=== PATIENT | male | born 1950 | race Caucasian/White ===

== ENCOUNTER 2019-07-19 22:22 | Emergency (ER) | payer OTHER ==
[~2019-07-19] VITALS: Ht 180.3 cm; Wt 68.0 kg
[2019-07-19 22:46] LABS: BASOPHILS 0.4 % (0.0-2.0); EOSINOPHILS 0.7 % (0.0-3.0); HEMATOCRIT 42.6 % (42.0-52.0); HEMOGLOBIN 14.4 gm/dL (14.0-18.0); LYMPHOCYTES 27.2 % (24.0-44.0); MCH 29.7 pg (26.0-34.0); MCHC 33.7 g/dL (28.0-37.0); MCV 88.2 fL (80.0-100.0); MONOCYTES 6.4 % (1.0-8.0); PLATELET COUNT 186 thou/uL (150-400); POLYS 65.3 % (36.0-66.0); RBC 4.84 mil/uL (4.50-6.00); RDW 16.3 % (10.5-14.5); WBC 9.2 thou/uL (4.0-11.0)
[2019-07-19] MEDS ORDERED: LISINOPRIL2.5 MG PO (22:47)
[2019-07-19] MEDS ORDERED: CLONIDINE HCL0.2 M2 PO (22:48)
[2019-07-19] MEDS ORDERED: SPIRONOLACTONE25 MG PO (22:48)
[2019-07-19] MEDS ORDERED: FOLIC ACID1 MG PO (22:49)
[2019-07-19] MEDS ORDERED: LORATIDINE 10 M10 M1 PO (22:50)
[2019-07-19] MEDS ORDERED: GUAIFENESIN PO (22:50)
[2019-07-19] MEDS ORDERED: PROTONIX40 M2 PO (22:50)
[2019-07-19] MEDS ORDERED: ESCITALOPRAM PO (22:51)
[2019-07-19] MEDS ORDERED: SIMVASTATIN80 MG PO (22:52)
[2019-07-19] MEDS ORDERED: HYDROXYZINE HCL25 M2 PO (22:53)
[2019-07-19 22:54] LABS: ANION GAP 12 mmol/L (7-16); BUN 16 mg/dL (7-18); CALCIUM 9.2 mg/dL (8.5-10.1); CHLORIDE 104 mmol/L (98-107); CO2 28 mmol/L (21-32); CREATININE 1.2 mg/dL (0.7-1.3); GLUCOSE 110 mg/dL (74-106); POTASSIUM 3.7 mmol/L (3.5-5.1); SODIUM 144 mmol/L (136-145)
[2019-07-19 23:00] LABS: TROPONIN-I <0.06 ng/mL (<0.06)
[2019-07-20] MEDS ORDERED: AMOXICILLIN500 M1 PO (00:49)
[2019-07-20 00:51] VITALS: BP 162/78
--- NOTE | 2019-07-20 08:09 | EKG ---
[facility] [place] [address] [place] [address] ELECTROCARDIOGRAM REPORT Name: DAVID BECKHAM Room #: DEP M..#: [id number] Admission: 07/19/19 Attend Phys: Discharge: 07/20/19 Date of : 48 Report #: [id number] THIS REPORT FOR: cc: FLORENCE HERRMANN MD, BEVERLEY B. MD Lundgren, Craig H. MD [facility] ~ THIS REPORT FOR: //name// [facility] ED Test Date: 2019-07-19 Test Time: 22:26:27 Pat Name: DAVID BECKHAM Department: Room: Gender: Supervisor Winding Department[facility] 1950 Requested By: Pedro Luis Barbosa Order Number: [id number] MD: Alfredo Reece Measurements Intervals [place] Rate: 103 P: 52 SC: 181 QRS: -58 QRSD: 110 T: 84 QT: 347 QTc: 454 Interpretive Statements Sinus tachycardia LAD, consider left anterior fascicular block Anterior infarct, old Compared to ECG 11/02/2008 14:09:59 Early R wave progression is no longer present Electronically Signed On 07-20-2019 8:07:57 CDT by Alfredo Reece [email or web address] <ELECTRONICALLY SIGNED> By: Alfredo Reece MD, [facility] 07/20/1907 25 25 Alfredo Reece MD, [facility] /EPI
== END 2019-07-20 01:37 | disposition home or self-care (01) ==
LOC: ER 22:22
PROVIDERS: Emergency Medicine
DX: J18.9 Pneumonia, unspecified organism (principal); K21.9 Gastro-esophageal reflux disease without esophagitis; I10 Essential (primary) hypertension; J44.9 Chronic obstructive pulmonary disease, unspecified; F17.210 Nicotine dependence, cigarettes, uncomplicated; Z03.818 Encounter for observation for suspected exposure to other biological agents ruled out; Z79.899 Other long term (current) drug therapy; Z88.6 Allergy status to analgesic agent; Z88.8 Allergy status to other drugs, medicaments and biological substances; Z98.890 Other specified postprocedural states; Z90.49 Acquired absence of other specified parts of digestive tract

== ENCOUNTER 2019-08-26 19:05 | Inpatient (IN) | payer OTHER ==
[~2019-08-26] VITALS: Ht 170.2 cm; Wt 72.6 kg
[~2019-08-26 19:05] MED LIST: AMOXICILLIN500 M1 PO; CLONIDINE HCL0.2 M2 PO; ESCITALOPRAM PO; FOLIC ACID1 MG PO; GUAIFENESIN PO; HYDROXYZINE HCL25 M2 PO; LISINOPRIL2.5 MG PO; LORATIDINE 10 M10 M1 PO; PROTONIX40 M2 PO; SIMVASTATIN80 MG PO; SPIRONOLACTONE25 MG PO
[2019-08-26 19:07] VITALS: BP 101/52
[2019-08-26 20:04] LABS: ABSOLUTE NEUTROPHILS 5.6 thou/uL (1.4-8.2); EOSINOPHILS 0.7 % (0.0-3.0); HEMOGLOBIN 10.6 gm/dL (14.0-18.0); LYMPHOCYTES 30.7 % (24.0-44.0); MCH 30.9 pg (26.0-34.0); MCHC 34.2 g/dL (28.0-37.0); MCV 90.4 fL (80.0-100.0); PLATELET COUNT 158 thou/uL (150-400); POLYS 57.6 % (36.0-66.0); RBC 3.43 mil/uL (4.50-6.00); RDW 18.8 % (10.5-14.5); WBC 9.7 thou/uL (4.0-11.0)
[2019-08-26 20:11] LABS: ANION GAP 11 mmol/L (7-16); BUN 23 mg/dL (7-18); CALCIUM 8.9 mg/dL (8.5-10.1); CHLORIDE 100 mmol/L (98-107); CO2 27 mmol/L (21-32); CREATININE 1.6 mg/dL (0.7-1.3); GLUCOSE 92 mg/dL (74-106); POTASSIUM 3.3 mmol/L (3.5-5.1); SODIUM 138 mmol/L (136-145)
[2019-08-26 20:21] LABS: SGOT 22 U/L (15-37); SGPT 29 U/L (30-65); TOTAL BILIRUBIN 0.5 mg/dL (0.2-1.0); TOTAL PROTEIN 5.6 g/dL (6.4-8.2); TROPONIN-I <0.06 ng/mL (<0.06)
[2019-08-26 20:45] LABS: URINE BILIRUBIN 1+ (Negative); URINE BLOOD NEGATIVE (Negative); URINE CLARITY CLEAR; URINE COLOR YELLOW; URINE GLUCOSE-RANDOM* NEGATIVE (Negative); URINE KETONES NEGATIVE (Negative); URINE LEUKOCYTES-REFLEX TRACE (Negative); URINE NITRITE-REFLEX NEGATIVE (Negative); URINE PROTEIN (DIPSTICK) NEGATIVE (Negative); URINE UROBILINOGEN 0.2 E.U./dl (0.2-1.0)
[2019-08-26 20:47] LABS: ICTOTEST (BILI CONFIRMATORY) Negative (Negative)
[2019-08-26 22:29] LABS: HEMATOCRIT 28.2 % (42.0-52.0); HEMOGLOBIN 9.5 gm/dL (14.0-18.0); MCH 30.8 pg (26.0-34.0); MCHC 33.7 g/dL (28.0-37.0); MCV 91.1 fL (80.0-100.0); RBC 3.1 mil/uL (4.50-6.00); RDW 18.5 % (10.5-14.5); WBC 8.3 thou/uL (4.0-11.0)
[2019-08-26 23:18] LABS: PROTIME 10.7 Seconds (9.3-11.4)
--- NOTE | 2019-08-26 23:57 | NUR ---
PATIENTS DAUGHTER [phone] NICHOLE BUENROSTRO. PLEASE CONTACT WELL.
[2019-08-27] VITALS (8 sets, daily range): BP systolic 94–134; BP diastolic 51–76
--- NOTE | 2019-08-27 01:46 | NUR ---
ADM" PT ARRIVED AROUND 0120. ALERT AND ORIENTED. C/O HEADACHE , S/P FALL AND HEMATOMA. PT DRINKS VODKA DAILY. TREMORS NOTICED , NO ANY OTHER WITHDRAWAL SIGNS NOTICED. CONSUMER INSIGHTS INTERN NOTIFIED. LE BRUISES AND SCARRING. REPORTS LOOSING WEIGHT AND POOR APPETITE FOR SEVERAL WEEKS NOW. SR ON THE MONITOR. NO CHEST PAIN, NO N/V/D. NO EXTERNAL SIGN OF ACTIVE BLEED DESPITE DROP IN HGB. WILL CONTINUE TO MONITOR VS AND POC.
[2019-08-27 02:41] LABS: PHOSPHORUS 3.3 mg/dL (2.5-4.9)
[2019-08-27 04:06] LABS: MAGNESIUM 0.6 mg/dL (1.8-2.4)
[2019-08-27 05:28] LABS: HEMATOCRIT 28.7 % (42.0-52.0); HEMOGLOBIN 9.7 gm/dL (14.0-18.0); MCH 30.6 pg (26.0-34.0); MCHC 33.9 g/dL (28.0-37.0); RBC 3.18 mil/uL (4.50-6.00); RDW 18.7 % (10.5-14.5); WBC 6.1 thou/uL (4.0-11.0)
[2019-08-27 05:47] LABS: CALCIUM 8.1 mg/dL (8.5-10.1); CREATININE 1.3 mg/dL (0.7-1.3); POTASSIUM 3.4 mmol/L (3.5-5.1)
[2019-08-27 07:05] LABS: % SATURATION 15 % (20-39); IRON 31 ug/dL (65-175); TIBC 208 ug/dL (250-450)
[2019-08-27 07:34] LABS: FOLIC ACID 64.1 ng/mL (8.6-58.9)
[2019-08-27 10:55] LABS: MAGNESIUM 2.1 mg/dL (1.8-2.4); POTASSIUM 4.1 mmol/L (3.5-5.1)
--- NOTE | 2019-08-27 13:13 | NUR ---
PT CARE ASSUMED AT 0700, PT ALERT AND ORIENTED X4, DENIES CHEST PAIN. PT STATES HAVING SOME NAUSEA AND HEADACHE. ON ROOM AIR, NO SIGNS OF DISTRESS NOTED. CALL LIGHT AND TABLE WITHIN REACH. BED AT LOWEST LEVEL WITH ALA RM ON 1000 PT DAUGHTER CAME IN WITH PT ADVANCE DIRECTIVE, A COPY MADE AND PUT IN PT CHART.
--- NOTE | 2019-08-27 15:16 | NUR ---
Chart reviewed and case discussed with the care team. Ranch Cook attempted to talk with pt however he is nauseated and sleeping this afternoon. Pt's dtr [place] here this morning and brought in a copy of the pt's dpoa for hc/adv directive for the chart. She notes that he lives in a ground level apt with his brother. He recently went to [facility] d/t a fall and uses a rwalker for gait in the home. He has been drinking heavily and his dtr notes this has been increasing over the past 8 years since he lost his . He utlizes the local [place] clinic for his pcp (dr. kyle) and gets his meds there. Fawn lives locally and her sister Allison who is an alternate dpoa lives out of state. Both are available via cell phone. Fawn indicates the pt normally goes to the [place] hospital;however he does not want to transfer there now as he is feeling bad and already detoxing. She reports that he had made plans to go to the [facility] at the [place] for detox and to get help for his depression. She is concerned that he may need to make other living arrangements as the home situation with his brother is unhealthy. She requested [facility] resources and is also concerned that he is very weak. SNF/rehab discussed, and both SNF and RETIREMENT listings were emailed to her. A senior blue book was left in the room for them as well. PT/OT evals are in progress. GI is consulting due to possible bleed. IRENA 5. Will follow along for possible SNF referral at [place].
--- NOTE | 2019-08-28 05:47 | NUR ---
ASSUMED PT CARE AT 1900, PT IS AWAKE, ALERT AND ORIENTED, MAKES NEEDS KNOWN, SR ON THE MONITOR, C/O PAIN, MEDICATED PRN, C/O NAUSEA, MEDICATED PRN WITH RELIEF, REMAINED NPO AFTER MIDNIGHT FOR EGD IN THE AM, REMAINED IN BED THROUGH THE SHIFT, WILL CONTINUE TO MONITOR
[2019-08-28 05:54] VITALS: BP 134/56
[2019-08-28 05:56] LABS: HEMATOCRIT 28.2 % (42.0-52.0); HEMOGLOBIN 9.6 gm/dL (14.0-18.0); MCH 30.7 pg (26.0-34.0); MCHC 33.9 g/dL (28.0-37.0); MCV 90.6 fL (80.0-100.0); RBC 3.11 mil/uL (4.50-6.00); RDW 18.9 % (10.5-14.5); WBC 6.7 thou/uL (4.0-11.0)
[2019-08-28 06:32] LABS: ALBUMIN 2.5 g/dL (3.4-5.0); CALCIUM 7.9 mg/dL (8.5-10.1); CREATININE 0.9 mg/dL (0.7-1.3); MAGNESIUM 1.5 mg/dL (1.8-2.4); POTASSIUM 3.7 mmol/L (3.5-5.1); TOTAL BILIRUBIN 0.6 mg/dL (0.2-1.0)
[2019-08-28 08:00] VITALS: BP 156/85
--- NOTE | 2019-08-28 11:46 | EKG ---
[facility] [place] [address] ELECTROCARDIOGRAM REPORT Name: DAVID BECKHAM Room #: 216-P ADM IN M.R.#: [id number] Admission: 08/27/19 Attend Phys: Nazanin Canela MD Discharge: Date of : 48 Report #: [id number] THIS REPORT FOR: cc: FITO - No family physician/PCP FITO - No family physician/PCP Modesto Vazquez MD ~ THIS REPORT FOR: //name// [facility] ED Test Date: 2019-08-26 Test Time: 19:50:34 Pat Name: DAVID BECKHAM Department: Room: [facility] Gender: M Cognos Lead: MARY : 1950 Requested By: Calvin Caro Order Number: [id number] MD: Modesto Vazquez Measurements Intervals [place] Rate: 88 P: -42 [place]: 164 QRS: -56 QRSD: 101 T: 83 QT: 371 QTc: 449 Interpretive Statements Sinus rhythm LAD, consider left anterior fascicular block Abnormal R-wave progression, early transition Compared to ECG 07/19/2019 22:26:27 Electronically Signed On 08-28-2019 11:45:51 CDT by Modesto Vazquez [email or web address] <ELECTRONICALLY SIGNED> By: Modesto Vazquez MD 08/28/19 1145 [birth year] Modesto Vazquez MD /EPI
[2019-08-28] MEDS ORDERED: PRENATAL PO (12:58)
[2019-08-28] MEDS ORDERED: VITAMIN B-1100 M2 PO (12:58)
--- NOTE | 2019-08-28 13:10 | NUR ---
RECEIVED PT'S CARE AROUND 0730; PT. ON BED; ALERT; DURING AM ASSESSMENT C/O HEADACHE; IV LORAZEPAM GIVEN; HOLD PO AM MEDICATION DUE TO NPO; EGD PLAN; GONE FOR THE PROCEDURE AFTER 0800; BACK FROM PROCEDURE AFTER 0900; PT. AOX4; ABLE TO EAT DURING LUNCH; HAD SOME BM's; CIWA PERFORMED; CHECK CHART; DURING THE AFTERNOON PT'S DAUGHTER AT THE BED SIDE; REQUESTED TO SPEAK TO PHYSICIAN DUE TO POC; PHYSICIAN PAGED & ABLE TO TALK WITH DAUGHTER; PER PHYSICIAN PRINT PT'S CHART SO IT CAN BE GIVEN TO ER PHYSICIAN AT THE [place] [facility]; [employer] TE[employer]ER [facility]; ASSESSMENT CHARGED; FOLLOWING POC; D/C ON PLACED; PT & DAUGHTER EDUCATED ABOUT IT; [facility]; WORKING ON D/C PAPER WORK;
[2019-08-28 13:26] VITALS: BP 156/85
--- NOTE | 2019-09-02 18:06 | PATH ---
[facility] [place] [address] PATHOLOGY RPT PROCEDURE Name: DAVID BECKHAM Room #: 216-P DIS IN M.R.#: [id number] Admission: 08/27/19 Date of : 48 Discharge: 08/28/19 Report #: [id number] Path Case #: [id number] [facility] Accession Number: [id number] . 01 Material submitted: . PART A: duodenum - BIOPSY OF DUODENUM TO RULE OUT SPRUE PART B: gastrointestinal site - BIOPSY OF GASTRITIS PART C: esophagus - BIOPSY OF DISTAL ESOPHAGUS . Modifiers: distal . 01 Clinician provided ICD-10: K92.2 N17.9 . 01 Clinical history: . anemia, hx of rebollar's . 02 Diagnosis: A. Duodenum, duodenum rule out sprue, endoscopic biopsy: - No diagnostic abnormalities present. - Negative for villous blunting or increase in intraepithelial lymphocytes. . B. Gastric mucosa, gastritis, endoscopic biopsy: - Mild reactive gastropathy. - Negative for intestinal metaplasia or atrophy. - Negative for Helicobacter pylori (properly-controlled immunohistochemical stain performed). . C. Gastroesophageal mucosa, distal esophagus to rule out Rebollar's, endoscopic biopsy: - SPECIALIZED COLUMNAR EPITHELIUM (GASTRIC CARDIA-TYPE MUCOSA) WITH INTESTINAL METAPLASIA, CONSISTENT WITH REBOLLAR'S METAPLASIA; SHOWING FOCAL AREA INDEFINITE FOR DYSPLASIA, SEE COMMENT. - Squamous mucosa with mild esophagitis. . (IUV:mml; 09/01/2019) [facility] 09/02/2019 1720 Local . 02 Comment: A tiny focus of stratified metaplastic epithelium is present at the surface; however is lost on additional recuts examined. This focus is likely reactive. Close clinical correlation is suggested. . H and E slide of part C was co-reviewed by Dr. Sangeeta Sun, who concurs with my interpretation. . (IUV:mml; 09/01/2019) [facility] [address] [place] [address] PATHOLOGY RPT PROCEDURE Name: DAVID BECKHAM Room #: 216-P DIS IN M.R.#: [id number] Admission: 08/27/19 Date of : 48 Discharge: 08/28/19 Report #: [id number] Path Case #: [id number] . 02 Electronically signed: . Mary Ann Bailey MD, Pathologist NPI- [id number] . 01 Gross description: . A. The specimen is received in formalin labeled "David Beckham BX of duodenum to rule out sprue" and consists of multiple fragments of mahan tissue measuring 1.0 x 0.3 x 0.2 cm in aggregate which are entirely submitted in A1. . B. The specimen is received in formalin labeled "David Beckham BX of gastritis" and consists of multiple fragments of mahan tissue measuring 1.2 x 0.2 x 0.2 cm in aggregate which are entirely submitted in B1. . C. The specimen is received in formalin labeled "David Beckham BX of the distal esophagus to rule out Rebollar's" and consists of a fragment of mahan tissue measuring 0.6 x 0.2 x 0.2 cm which is entirely submitted in C1. (ONOFRE; 08/31/2019) [facility] 08/31/2019 1428 Local . 02 Pathologist provided ICD-10: K31.9, K22.710, K20.9 . 02 CPT . 565814, 621086, 047445, E40808 Specimen Comment: A courtesy copy of this report has been sent to [phone] Specimen Comment: Report sent to Performed at: [address] [facility] [address], [place], [place] [id number] MD Bandar Andrews MD Phone: [phone] Performed at: [address] [facility] [address] [id number] MD Mary Ann Bailey MD Phone: [phone]
--- NOTE | 2019-09-08 08:17 | P ---
[facility] [place] [address] PROCEDURE REPORT Name: DAVID BECKHAM Room #: 216-P [facility] IN M.R.#: [id number] Admission: 08/27/19 Attend Phys: Nazanin Canela MD Discharge: 08/28/19 Date of : 48 Report #: [id number] THIS REPORT FOR: cc: FITO - No family physician/PCP FITO - No family physician/PCP Adrian Stiles MD ~ CC: Nazanin PAYTON physician/PCP DATE OF SERVICE: 08/28/2019 PROCEDURE PERFORMED: Upper endoscopy with biopsies. HISTORY OF PRESENT ILLNESS: The patient is a 69-year-old male who is admitted on 08/27/2019 for increasing shortness of breath as well as hypotension. He has a history of alcohol abuse, gastroesophageal reflux disease, Wiggins's, recent fall resulting in a left subdural hematoma, was hospitalized at [facility] last week, also resulting in a laceration of his forehead. He was discharged from there with prednisone and antibiotics. Hemoglobin on admission here was 10.6, dropped to 9.5. Hemoglobin in July here was in the 14 range. He does report possible darker stools in general. He denies any NSAIDs or anticoagulation therapy. He has been taking Protonix for reflux and Wiggins's. He denies any dysphagia. He believes his last colonoscopy was more than 5 years ago at the [facility]. Plan is for upper endoscopy. DESCRIPTION OF PROCEDURE: The risks and benefits of the procedure were explained to the patient, those risks including but not limited to bleeding, perforation, the risk of sedation. He understood these risks and gave informed consent. Sedation was given using propofol per Anesthesia. Next, using a standard Olympus upper endoscope, the scope was placed in the patient's mouth and advanced under direct vision through the esophagus, stomach and into the second portion of the duodenum. The larynx was normal in appearance. The upper and mid esophagus was normal. In the distal esophagus, a short segment of Wiggins's was noted. No evidence of esophagitis. Biopsies were obtained. There was a mild gastritis noted in the gastric body and the gastric antrum. Biopsies were obtained to rule out H. pylori. No evidence of ulcerations or erosions. There was no evidence of blood throughout the exam today. The duodenal bulb was normal. Mild duodenitis was noted in the first and second portion of the duodenum. Again, no evidence of ulcerations or bleeding. Biopsies were obtained to rule out celiac sprue. The scope was then withdrawn and the procedure terminated. The patient tolerated the procedure well. IMPRESSION: 1. 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 [address] [address] PROCEDURE REPORT Name: DAVID BECKHAM Room #: 216-P DIS IN M.R.#: [id number] Admission: 08/27/19 Attend Phys: Nazanin Canela MD Discharge: 08/28/19 Date of : 48 Report #: [id number] 2. Gastritis. 3. Duodenitis. 4. Otherwise, normal upper endoscopy. RECOMMENDATIONS: 1. Await biopsy results. 2. Continue daily PPI therapy. 3. The patient with Hemoccult-positive stool. Currently, hemoglobin is stable. No signs of bleeding, normal upper endoscopy, would recommend repeat colonoscopy as an outpatient. The patient is currently stable from a GI standpoint. Thank you for allowing me to participate in his care. <ELECTRONICALLY SIGNED> By: Adrian Stiles MD 09/08/19 0817 0930 1021 Adrian Stiles MD /nt
== END 2019-08-28 14:02 | disposition home or self-care (01) | DRG 377 ==
LOC: ER 19:05 → 2N 08-27 00:01 → EROBS 08-27 00:01 → 2N 08-27 01:00
PROVIDERS: Emergency Medicine; Internal Medicine; Nurse Practitioner Family; ADMIT Hospitalist; ATTEND Hospitalist
DX: K29.71 Gastritis, unspecified, with bleeding (principal); G92 Toxic encephalopathy; N17.9 Acute kidney failure, unspecified; E44.0 Moderate protein-calorie malnutrition; D62 Acute posthemorrhagic anemia; K29.81 Duodenitis with bleeding; F10.20 Alcohol dependence, uncomplicated; K21.9 Gastro-esophageal reflux disease without esophagitis; I10 Essential (primary) hypertension; J43.9 Emphysema, unspecified; E78.5 Hyperlipidemia, unspecified; F17.210 Nicotine dependence, cigarettes, uncomplicated; Z66 Do not resuscitate; F41.9 Anxiety disorder, unspecified; K22.70 Barrett's esophagus without dysplasia; I95.9 Hypotension, unspecified; Z20.828 Contact with and (suspected) exposure to other viral communicable diseases; Z88.6 Allergy status to analgesic agent; Z90.49 Acquired absence of other specified parts of digestive tract; Z98.42 Cataract extraction status, left eye; Z88.8 Allergy status to other drugs, medicaments and biological substances; Z71.6 Tobacco abuse counseling; Z68.25 Body mass index [BMI] 25.0-25.9, adult; F12.10 Cannabis abuse, uncomplicated
CPT/HCPCS: 10081; 62110; 62900